=== PATIENT | male | born 1985 | race African-American/Black ===

== ENCOUNTER 2017-10-11 22:45 | Emergency (ER) | payer MEDICARE ==
[~2017-10-11] VITALS: Ht 188 cm; Wt 100.0 kg
[2017-10-11 22:50] VITALS: BP 166/108; PULSE 75; RESP 16; O2SAT 98
[2017-10-11] MEDS ORDERED: AMLO10TA2 PO (22:50)
[2017-10-11 22:57] VITALS: BP_SYST 158; BP_SYST 166; BP_DIAS 101; BP_DIAS 108
[2017-10-11] MEDS ORDERED: SODIUM CHLORIDE 0.9% FLUSH 10 ML FLUSH IVF PRN (23:00)
--- NOTE | 2017-10-11 23:00 | PD ---
HPI Chief Complaint: Hypertension Time Seen by Provider: 22:53 Travel History International Travel<30 days: No Contact w/Intl Traveler<30days: No Traveled to known affect area: No History of Present Illness HPI 32-year-old male patient with history of hypertension, presents to the ER today brought in by his mom because he apparently has been having several days of feeling hot and cold, and today's looking more lethargic, complains of feeling weak, complains to me that he is having some chest discomfort although he states is not actual chest pains. He also complains of a headache. He apparently has similar symptoms before and had been told that his blood pressure was too high. He has been on Norvasc and did take his Norvasc today. His mom states his blood pressures were elevated. She had taken a temperature and he did not have a temperature at home. Modifying Factors: None Associated Signs & Symptoms: Headache, chest discomfort, elevated blood pressures Risk Factors: History of hypertension PFSH Past Medical History Diminished Hearing: No Hypertension: Yes Tetanus Vaccination: Unknown Past Surgical History Surgical History: No Previous Surgery Social History Alcohol Use: No Tobacco Use: No Substance Use: No Allergies-Medications (Allergen,Severity, Reaction): Coded Allergies: No Known Allergies (Unverified , 10/11/17) Reported Meds & Prescriptions Reported Meds & Active Scripts Active Reported Amlodipine (Amlodipine Besylate) 10 Mg Tab 10 Mg PO DAILY Review of Systems Except as stated in HPI: all other systems reviewed are Neg Physical Exam Narrative GENERAL: Well-developed young -British male patient currently in moderate distress. Awake, lethargic, but answering questions appropriately. SKIN: Focused skin assessment warm/dry. HEAD: Atraumatic. Normocephalic. EYES: Pupils equal and round. No scleral icterus. No injection or drainage. ENT: No nasal bleeding or discharge. Mucous membranes pink and moist. NECK: Trachea midline. No JVD. CARDIOVASCULAR: Regular rate and rhythm. No murmur appreciated. Pulses are present and equal bilaterally. RESPIRATORY: No accessory muscle use. Clear to auscultation. Breath sounds equal bilaterally. GASTROINTESTINAL: Abdomen soft, non-tender, nondistended. Hepatic and splenic margins not palpable. MUSCULOSKELETAL: No obvious deformities. No clubbing. No cyanosis. No edema. NEUROLOGICAL: Awake and lethargic. No obvious cranial nerve deficits. Motor grossly within normal limits. Normal speech. PSYCHIATRIC: Appropriate mood and affect; insight and judgment normal. Data Data Last Documented VS Vital Signs Date Time Temp Pulse Resp B/P (MAP) Pulse Ox O2 Delivery O2 Flow Rate FiO2 10/12/17 01:22 83 17 148/97 (114) 10/11/17 22:53 99 Room Air Orders Orders Electrocardiogram (10/11/17 22:54) B-Type Natriuretic Peptide (10/11/17 22:54) Ckmb (Isoenzyme) Profile (10/11/17 22:54) Complete Blood Count With Diff (10/11/17 22:54) Comprehensive Metabolic Panel (10/11/17 22:54) Magnesium (Mg) (10/11/17 22:54) Prothrombin Time / Inr (Pt) (10/11/17 22:54) Act Partial Throm Time (Ptt) (10/11/17 22:54) Troponin I (10/11/17 22:54) Chest, Single Ap (10/11/17 22:54) Ecg Monitoring (10/11/17 22:54) Bilateral Bp Monitoring (10/11/17 22:54) Iv Access Insert/Monitor (10/11/17 22:54) Oximetry (10/11/17 22:54) Oxygen Administration (10/11/17 22:54) Sodium Chloride 0.9% Flush (Ns Flush) (10/11/17 23:00) Blood Culture (10/11/17 22:54) Ct Brain W/O Iv Contrast(Rout) (10/11/17 22:54) Drug Screen, Random Urine (10/11/17 22:54) Ondansetron Inj (Zofran Inj) (10/11/17 23:30) Alcohol (Ethanol) (10/11/17 23:00) CKMB (10/11/17 ) CKMB% (10/11/17 ) Ed Discharge Order (10/12/17 02:09) Labs Laboratory Tests Test 10/11/17 00:00 10/11/17 23:00 10/12/17 01:00 Blood Urea Nitrogen 10 MG/DL Creatinine 1.02 MG/DL Random Glucose 114 MG/DL Total Protein 7.6 GM/DL Albumin 3.7 GM/DL Calcium Level 8.6 MG/DL Magnesium Level 1.9 MG/DL Alkaline Phosphatase 52 U/L Aspartate Amino Transf (AST/SGOT) 16 U/L Alanine Aminotransferase (ALT/SGPT) 14 U/L Total Bilirubin 0.7 MG/DL Sodium Level 140 MEQ/L Potassium Level 4.0 MEQ/L Chloride Level 105 MEQ/L Carbon Dioxide Level 28.5 MEQ/L Anion Gap 7 MEQ/L Estimat Glomerular Filtration Rate 104 ML/MIN Total Creatine Kinase 104 U/L Creatine Kinase MB LESS THAN 0.5 NG/ML Troponin I LESS THAN 0.02 NG/ML B-Type Natriuretic Peptide LESS THAN 2 PG/ML Ethyl Alcohol Level LESS THAN 3 MG/DL White Blood Count 10.7 TH/MM3 Red Blood Count 5.43 MIL/MM3 Hemoglobin 14.5 GM/DL Hematocrit 44.1 % Mean Corpuscular Volume 81.3 FL Mean Corpuscular Hemoglobin 26.8 PG Mean Corpuscular Hemoglobin Concent 32.9 % Red Cell Distribution Width 12.7 % Platelet Count 258 TH/MM3 Mean Platelet Volume 8.9 FL Neutrophils (%) (Auto) 83.6 % Lymphocytes (%) (Auto) 8.8 % Monocytes (%) (Auto) 5.7 % Eosinophils (%) (Auto) 1.5 % Basophils (%) (Auto) 0.4 % Neutrophils # (Auto) 9.0 TH/MM3 Lymphocytes # (Auto) 0.9 TH/MM3 Monocytes # (Auto) 0.6 TH/MM3 Eosinophils # (Auto) 0.2 TH/MM3 Basophils # (Auto) 0.0 TH/MM3 CBC Comment DIFF FINAL Differential Comment Prothrombin Time 10.6 SEC Prothromb Time International Ratio 1.0 RATIO Activated Partial Thromboplast Time 27.3 SEC Urine Opiates Screen NEG Urine Barbiturates Screen NEG Urine Amphetamines Screen NEG Urine Benzodiazepines Screen NEG Urine Cocaine Screen NEG Urine Cannabinoids Screen NEG MDM Medical Decision Making Medical Screen Exam Complete: Yes Emergency Medical Condition: Yes Medical Record Reviewed: Yes Interpretation(s) EKG shows NSR, no ST elevation or depression, and no arrhythmias. No significant T-wave inversions. Laboratory Tests Test 10/11/17 00:00 10/11/17 23:00 10/12/17 01:00 Random Glucose 114 MG/DL (74-106) Creatine Kinase MB LESS THAN 0.5 NG/ML Troponin I LESS THAN 0.02 NG/ML Mean Corpuscular Hemoglobin 26.8 PG (27.0-34.0) Neutrophils (%) (Auto) 83.6 % (16.0-70.0) Lymphocytes (%) (Auto) 8.8 % (9.0-44.0) Neutrophils # (Auto) 9.0 TH/MM3 (1.8-7.7) Lymphocytes # (Auto) 0.9 TH/MM3 (1.0-4.8) Last [address] 10/11/172253 Signed Impressions: Service Date/Time: Wednesday, October 11, 2017 23:14 - CONCLUSION: Negative noncontrast CT brain. Trey Alcaraz MD Chest X-Ray 10/11/172253 Signed Impressions: Service Date/Time: Wednesday, October 11, 2017 23:01 - CONCLUSION: The lungs are clear. Trey Alcaraz MD Differential Diagnosis Headaches, chest discomfort, elevated blood pressures: Hypertensive urgency versus metabolic issues versus dehydration versus renal failure versus sepsis versus viral syndrome Narrative Course CT the brain is negative for any signs of acute intracranial processes. Patient has no focal neurological findings. EKG was unremarkable. Lab work was unremarkable. His blood pressure was mildly elevated. On further questioning, both patient and mother state that he had ran out of his Norvasc, just took his last pill today. Patient obviously needs better blood pressure control. At this point, I have talked to the patient regarding further workup including lumbar puncture, further evaluation, but he is declining, states that he would rather go home. He does not want me to do a lumbar puncture or further workup at this time. He states that he feels worse he should come back. At this point, I have talked him about the fact that we cannot rule out all acute issues and that further testing would be necessary, patient states understanding. He should return for any worsening in symptoms and follow-up with primary care physician regarding elevated blood pressures. Diagnosis Primary Impression: Hypertensive urgency Med/Other Pt SpecificInfo: Prescription(s) given Scripts Amlodipine (Amlodipine) 10 Mg Tab 10 MG PO DAILY for Blood Pressure Management, #30 TAB 0 Refills Prov: Pan Diaz MD 10/12/17 Disposition: 01 DISCHARGE HOME Condition: Stable Pan Diaz MD Oct 11, 2017 23:00
[2017-10-11] MEDS ORDERED: ONDANSETRON HCL 4 MG/2 ML VIAL IV PUSH ONE (23:30)
[2017-10-11 23:37] LABS: BASOPHIL % 0.4 % (0.0-2.0); EOSINOPHIL # 0.2 TH/MM3 (0-0.4); EOSINOPHIL % 1.5 % (0.0-4.0); HEMATOCRIT 44.1 % (39.0-51.0); HEMO FLAGS DIFF FINAL; LYMPH % 8.8 % (9.0-44.0); LYMPHOCYTE # 0.9 TH/MM3 (1.0-4.8); MEAN CELL VOLUME 81.3 FL (80.0-100.0); MEAN CORPUSCULAR HEMOGLOBIN 26.8 PG (27.0-34.0); MEAN CORPUSCULAR HGB CONC 32.9 % (32.0-36.0); MONO % 5.7 % (0.0-8.0); NEUT % 83.6 % (16.0-70.0); PLATELET COUNT 258 TH/MM3 (150-450); RED BLOOD COUNT 5.43 MIL/MM3 (4.50-5.90); RED CELL DISTRIBUTION WIDTH 12.7 % (11.6-17.2); WHITE BLOOD COUNT 10.7 TH/MM3 (4.0-11.0)
--- NOTE | 2017-10-11 23:39 | RADRPT ---
EXAM DATE/TIME: 10/11/2017 23:14 [facility] COMPARISON: No previous studies available for comparison. INDICATIONS : Altered mental status. RADIATION DOSE: 43.43 CTDIvol (mGy) MEDICAL HISTORY : Hypertension. SURGICAL HISTORY : None. ENCOUNTER: Initial ACUITY: 1 day PAIN SCALE: Non-responsive LOCATION: cranial TECHNIQUE: Multiple contiguous axial images were obtained of the head. Using automated exposure control and adj ustment of the mA and/or kV according to patient size, radiation dose was kept as low as reasonably a chievable to obtain optimal diagnostic quality images. DICOM format image data is available electro nically for review and comparison. FINDINGS: CEREBRUM: The ventricles are normal for age. No evidence of midline shift, mass lesion, hemorrhage or acute in farction. No extra-axial fluid collections are seen. POSTERIOR FOSSA: The cerebellum and brainstem are intact. The 4th ventricle is midline. The cerebellopontine angle i s unremarkable. EXTRACRANIAL: The visualized portion of the orbits is intact. SKULL: The calvaria is intact. No evidence of skull fracture. CONCLUSION: Negative noncontrast CT brain. Trey Alcaraz MD on October 11, 2017 at 23:36 Board Certified Radiologist. This report was verified electronically.
--- NOTE | 2017-10-11 23:42 | RADRPT ---
EXAM DATE/TIME: 10/11/2017 23:01 [facility] COMPARISON: No previous studies available for comparison. INDICATIONS : Chest pain. MEDICAL HISTORY : Hypertension. SURGICAL HISTORY : None. ENCOUNTER: Initial ACUITY: 1 day PAIN SCORE: 12/04 LOCATION: Bilateral chest FINDINGS: A single view of the chest demonstrates the lungs to be symmetrically aerated without evidence of mas s, infiltrate or effusion. The cardiomediastinal contours are unremarkable. Osseous structures are intact. CONCLUSION: The lungs are clear. Trey Alcaraz MD on October 11, 2017 at 23:41 Board Certified Radiologist. This report was verified electronically.
[2017-10-11 23:46] LABS: APTT (PATIENT) 27.3 SEC (24.3-30.1); PROTHROMBIN TIME - PATIENT 10.6 SEC (9.8-11.6)
[2017-10-12 00:30] LABS: ALT (GPT) 14 U/L (12-78); ANION GAP 7 MEQ/L (5-15); AST (GOT) 16 U/L (15-37); BICARBONATE 28.5 MEQ/L (21.0-32.0); BLOOD UREA NITROGEN 10 MG/DL (7-18); CHLORIDE 105 MEQ/L (98-107); GLOMERULAR FILTRATION RATE 104 ML/MIN (>89); MAGNESIUM 1.9 MG/DL (1.5-2.5); SODIUM (NA) 140 MEQ/L (136-145)
[2017-10-12 00:34] LABS: ALKALINE PHOSPHATASE 52 U/L (45-117); CREATINE KINASE 104 U/L (39-308); TOTAL BILIRUBIN ADULT 0.7 MG/DL (0.2-1.0)
[2017-10-12 00:47] LABS: ALCOHOL LESS THAN 3 MG/DL (0-5)
[2017-10-12 01:00] LABS: CKMB LESS THAN 0.5 NG/ML (0.5-3.6)
[2017-10-12 01:22] VITALS: BP 148/97; PULSE 83; RESP 17
[2017-10-12] MEDS ORDERED: AMLO10TA2 PO (02:14)
--- NOTE | 2017-10-12 15:47 | EKG ---
Date Performed: 10/11/2017 Time Performed: 22:46:30 PTAGE: 32 years EKG: Sinus rhythm NONSPECIFIC T-WAVE ABNORMALITY BORDERLINE ECG INTERPRETATION BASED ON A DEFAULT AGE OF 42 YEARS NO PREVIOUS TRACING DOCTOR: Getachew Miles Interpretating Date/Time 10/12/2017 15:45:51
[2017-10-13] MEDS ORDERED: CLIN150 PO (05:36)
[2017-10-13] MEDS ORDERED: BACT800T5 PO (05:36)
== END 2017-10-12 02:29 | disposition home or self-care (01) ==
LOC: NEPE 22:45
DX: I16.0 Hypertensive urgency (principal); R07.89 Other chest pain; Z79.899 Other long term (current) drug therapy
CPT/HCPCS: 70450; 71010; 80053; 80307; 82550; 82552; 83735; 83880; 84484; 85025; 85610; 85730; 87040; 93005; 96374; 99285; J2405

== ENCOUNTER 2017-10-13 05:08 | Emergency (ER) | payer MEDICARE ==
[~2017-10-13] VITALS: Ht 190.5 cm; Wt 100.0 kg
[2017-10-13 05:08] VITALS: BP 127/86; PULSE 106; RESP 18; TEMP 99.3; O2SAT 98
[~2017-10-13 05:08] MED LIST: AMLO10TA2 PO
[2017-10-13] MEDS ORDERED: CLIN150 PO (05:36)
[2017-10-13] MEDS ORDERED: BACT800T5 PO (05:36)
[2017-10-13] MEDS ORDERED: CLINDAMYCIN 900 MG PREMIX 50 ML IV ONE (05:45)
[2017-10-13] MEDS ORDERED: SULFAMETHOXAZOLE-TRIMETHOPRIM DS 800-160 MG TAB PO ONE (05:45)
--- NOTE | 2017-10-13 05:51 | PD ---
HPI Chief Complaint: Skin Problem Time Seen by Provider: 05:34 Travel History International Travel<30 days: No Contact w/Intl Traveler<30days: No Traveled to known affect area: No History of Present Illness HPI 32-year-old black male presents emergency Department with complains of a painful rash in his right groin over the past 1-2 days. He states that he was just seen in the ER 2 nights ago for hypertensive urgency. At that time the rash did not bother him. Since then it has become increasingly painful, red and swollen. He is been squeezing the area and only getting a small amount of pus. States the pain is moderate. Positive subjective fever. He denies any nausea, vomiting, abdominal pain. No urinary symptoms. PFSH Past Medical History Narrative Medical Hypertension Diminished Hearing: No Hypertension: Yes Tetanus Vaccination: < 5 Years Social History Alcohol Use: No Tobacco Use: No Substance Use: No Allergies-Medications (Allergen,Severity, Reaction): Coded Allergies: No Known Allergies (Unverified , 10/13/17) Reported Meds & Prescriptions Reported Meds & Active Scripts Active Bactrim DS (Sulfamethoxazole-Trimethoprim) 800-160 Mg Tab 1 Tab PO BID Cleocin (Clindamycin HCl) 150 Mg Cap 300 Mg PO Q6H 10 Days Amlodipine (Amlodipine Besylate) 10 Mg Tab 10 Mg PO DAILY Review of Systems Except as stated in HPI: all other systems reviewed are Neg General / Constitutional: Positive: Fever, Chills Eyes: No: Visual changes HENT: No: Headaches Cardiovascular: No: Chest Pain or Discomfort Respiratory: No: Shortness of Breath Gastrointestinal: No: Nausea, Vomiting, Abdominal Pain Genitourinary: No: Urgency, Frequency, Dysuria Musculoskeletal: No: Pain Skin: No Rash Neurologic: No: Weakness Psychiatric: No: Depression Endocrine: No: Polydipsia Hematologic/Lymphatic: No: Easy Bruising Physical Exam Narrative GENERAL: This is a well-nourished, well-developed patient, in no apparent distress. SKIN: No rashes, ecchymoses or lesions. Warm and dry. HEAD: Atraumatic. Normocephalic. EYES: PERRL, EOMI, no discharge or injection. No scleral icterus. EARS: Clear NOSE: Nasal turbinates appear normal. THROAT: Mucosa pink and moist. Airway patent. NECK: Trachea midline. supple, moves head freely. LUNGS: Clear to auscultation. CV: Regular in rhythm. ABDOMEN: Soft nontender. EXT: No clubbing cyanosis or edema. GENITOURINARY: Circumcised. Testes descended bilaterally without evidence of rotation. No lesions or erythema. No urethral discharge. No involvement of the scrotum. There is a large area of erythema, induration and thickening to the right inguinal area. The area measures approximately 3 x 6 cm. There is a small open area of purulent. It is indurated but not fluctuant. Data Data Last Documented VS Vital Signs Date Time Temp Pulse Resp B/P (MAP) Pulse Ox O2 Delivery O2 Flow Rate FiO2 10/13/17 05:08 99.3 106 18 127/86 (100) 98 Room Air Orders Orders Clindamycin 900 Mg Premix (Cleocin 900 M (10/13/17 05:45) Sulfamet-Trimeth Ds 800-160 Mg (Bactrim (10/13/17 05:45) MDM Medical Decision Making Medical Screen Exam Complete: Yes Emergency Medical Condition: Yes Medical Record Reviewed: Yes Differential Diagnosis MDM: High Differential diagnoses: Abscess, folliculitis, cellulitis, lymphangitis, abrasion, contact dermatitis Narrative Course IV access is obtained. Patient's given clindamycin 900 mg IV and Bactrim DS by mouth. This is right inguinal cellulitis, abscess Diagnosis Primary Impression: Cellulitis of right groin Additional Impression: Abscess of right groin Patient Instructions: General Instructions Additional Instructions: Rest. Warm compresses. Do not pick or squeeze. Clindamycin and Bactrim DS. Recheck in 48 hours in the ER or with a primary care doctor. Return to the ER sooner if any problems. Med/Other Pt SpecificInfo: Prescription(s) given Scripts Sulfamethoxazole-Trimethoprim (Bactrim DS) 800-160 Mg Tab 1 TAB PO BID for Infection, #20 TAB 0 Refills Prov: Delmar Garg MD 10/13/17 Clindamycin (Cleocin) 150 Mg Cap 300 MG PO Q6H for Infection for 10 Days, #80 CAP 0 Refills Prov: Delmar Garg MD 10/13/17 Disposition: 01 DISCHARGE HOME Condition: Stable Case Clement Oct 13, 2017 05:51
== END 2017-10-13 06:37 | disposition home or self-care (01) ==
LOC: NEPD 05:08
DX: L03.314 Cellulitis of groin (principal); L02.214 Cutaneous abscess of groin; I10 Essential (primary) hypertension; Z79.899 Other long term (current) drug therapy
CPT/HCPCS: 96365

== ENCOUNTER 2017-12-28 19:54 | Emergency (ER) | payer MEDICARE ==
[~2017-12-28] VITALS: Ht 182.9 cm; Wt 75.0 kg
[~2017-12-28 19:54] MED LIST changes: +BACT800T5 PO; +CLIN150 PO
[2017-12-28 19:57] VITALS: BP 152/102; PULSE 93; RESP 20; TEMP 98.4; O2SAT 96
[2017-12-28] MEDS ORDERED: AZITHROMYCIN 250 MG TAB PO ONE (20:15)
[2017-12-28] MEDS ORDERED: LIDOCAINE HCL 1% 30 ML VIAL INFIL ONE (20:15)
[2017-12-28] MEDS ORDERED: cefTRIAXone 250 MG VIAL IM ONE (20:15)
[2017-12-28] MEDS ORDERED: LIDOCAINE HCL 1% 50 ML VIAL XX ONE (20:15)
[2017-12-28] MEDS ORDERED: LIDOCAINE HCL 1% PF 30 ML VIAL ONE (20:20)
--- NOTE | 2017-12-28 20:30 | PD ---
HPI Chief Complaint: Complaint Time Seen by Provider: 20:01 Travel History International Travel<30 days: No Contact w/Intl Traveler<30days: No Traveled to known affect area: No History of Present Illness HPI 32-year-old male presents for evaluation of area of painful skin soft tissue swelling in the left groin/lateral scrotal region. Symptoms started 3 days ago. Throbbing pain which is constant, worse with palpation. He has noted some purulent drainage from the skin as well. Denies any pain in the testicles themselves. Denies any dysuria, fevers, chills, nausea, vomiting, abdominal pain. He has no other complaints at this time. [facility] Past Medical History Diminished Hearing: No Hypertension: Yes Immunizations Current: Yes Tetanus Vaccination: Unknown Influenza Vaccination: No Social History Alcohol Use: No Tobacco Use: No Substance Use: No Allergies-Medications (Allergen,Severity, Reaction): Coded Allergies: No Known Allergies (Unverified , 12/28/17) Reported Meds & Prescriptions Reported Meds & Active Scripts Active Clindamycin (Clindamycin HCl) 300 Mg Cap 300 Mg PO TID 10 Days Amlodipine (Amlodipine Besylate) 10 Mg Tab 10 Mg PO DAILY Review of Systems Except as stated in HPI: all other systems reviewed are Neg Physical Exam Narrative GENERAL: [Well-developed well-nourished male in no acute distress SKIN: Warm and dry. There is an area of induration/fluctuance on the lateral proximal scrotal wall. There is some purulent white drainage. There is no tenderness to palpation of the intrascrotal contents. : Skin as noted above. There is white urethral discharge. HEAD: Atraumatic. Normocephalic. EYES: Pupils equal and round. No scleral icterus. No injection or drainage. ENT: No nasal bleeding or discharge. Mucous membranes pink and moist. NECK: Trachea midline. No JVD. CARDIOVASCULAR: Regular rate and rhythm. No murmur appreciated. RESPIRATORY: No accessory muscle use. Clear to auscultation. Breath sounds equal bilaterally. GASTROINTESTINAL: Abdomen soft, non-tender, nondistended. Hepatic and splenic margins not palpable. Data Data Last Documented VS Vital Signs Date Time Temp Pulse Resp B/P (MAP) Pulse Ox O2 Delivery O2 Flow Rate FiO2 12/28/17 19:57 98.4 93 20 152/102 (119) 96 Room Air Orders Orders Lidocaine 1% Inj (Xylocaine 1% Inj) (12/28/17 20:15) Gc And Chlamydia Pcr (12/28/17 20:06) Azithromycin (Zithromax) (12/28/17 20:15) Ceftriaxone Inj (Rocephin Inj) (12/28/17 20:15) Lidocaine 1% Inj (50 Ml) (Xylocaine 1% I (12/28/17 20:15) Wound Culture And Gram Stain (12/28/17 20:06) Lidocaine Pf 1% Inj (Xylocaine-Mpf 1% In (12/28/17 20:20) Clindamycin Inj (Cleocin Inj) (12/28/17 20:45) Ed Discharge Order (12/28/17 20:43) Labs Laboratory Tests Test 12/28/17 20:15 [facility] Medical Decision Making Medical Screen Exam Complete: Yes Emergency Medical Condition: Yes Medical Record Reviewed: Yes Differential Diagnosis Abscess, cellulitis, Osmani's gangrene, erysipelas, urethritis Narrative Course Examination is consistent with abscess and cellulitis of the left scrotal wall which appears superficial. Wound culture was obtained from the purulent drainage. Plan is for incision and drainage of the area. The patient also has evidence of urethritis with white discharge from the urethral meatus. GC probe has been ordered and he is being treated with Rocephin and azithromycin. The abscess was incised and drained. Intramuscular clindamycin ordered. Recommended wound recheck in 2-3 days. He is agreeable. Procedures Procedure Narrative INCISION AND DRAINAGE OF ABSCESS: The area was prepped and was sterilely draped. A subcutaneous wheal of 1% lidocaine with a total number 6 mL was used to anesthetize the area. The area was properly anesthetized. A number 11 scalpel was used to make a 1-cm incision across the area of the abscess. Cultures were obtained. The abscess was drained an irrigated with normal saline. Diagnosis Primary Impression: Urethritis Additional Impression: Abscess of left groin Additional Instructions: Warm soaks 20 minutes at a time 3-4 times a day. Take the antibiotics as prescribed. Return in 2-3 days for recheck. Med/Other Pt SpecificInfo: Prescription(s) given, Wound Care Scripts Clindamycin (Clindamycin) 300 Mg Cap 300 MG PO TID for Infection for 10 Days, CAP 0 Refills Prov: Patria Owen MD 12/28/17 Disposition: 01 DISCHARGE HOME Condition: Stable Deondre Barnes Dec 28, 2017 20:30
[2017-12-28] MEDS ORDERED: CLIN300C5 PO (20:44)
[2017-12-28] MEDS ORDERED: CLINDAMYCIN PHOS 600 MG/4 ML VIAL IM ONE (20:45)
== END 2017-12-28 21:20 | disposition home or self-care (01) ==
LOC: NEPC 19:54
DX: N34.2 Other urethritis (principal); L02.214 Cutaneous abscess of groin; B95.62 Methicillin resistant Staphylococcus aureus infection as the cause of diseases classified elsewhere; B95.4 Other streptococcus as the cause of diseases classified elsewhere; I10 Essential (primary) hypertension
CPT/HCPCS: 10060; 86403; 87070; 87186; 87491; 87591; 96372; 99283; J0696; 87205

== ENCOUNTER 2018-03-04 18:55 | Emergency (ER) | payer SELFPAY ==
[~2018-03-04 18:55] MED LIST changes: -BACT800T5 PO; -CLIN150 PO; +CLIN300C5 PO
[2018-03-04 19:26] VITALS: BP 155/98; PULSE 96; RESP 18; TEMP 98.6; O2SAT 96
--- NOTE | 2018-03-04 19:57 | PD ---
HPI Chief Complaint: Skin Problem Time Seen by Provider: 19:40 Travel History International Travel<30 days: No Contact w/Intl Traveler<30days: No History of Present Illness HPI 32-year-old male presents to the emergency department with a questionable spider bite to his left facial cheek 3 days. Denies fever, nausea, vomiting. Denies history of MRSA. Denies dental pain. Denies drainage from the site. Has not taken any medications or try any treatments to alleviate his symptoms. Rates pain 7/10. Worse with palpation. No known relieving factors. No primary care provider. History of hypertension. No known allergies. Has no other medical complaints. No other modifying factors or associated signs and symptoms. PFSH Past Medical History Diminished Hearing: No Hypertension: Yes Immunizations Current: Yes Social History Alcohol Use: No Tobacco Use: No Substance Use: No Allergies-Medications (Allergen,Severity, Reaction): Coded Allergies: No Known Allergies (Unverified , 12/28/17) Reported Meds & Prescriptions Reported Meds & Active Scripts Active Ibuprofen 800 Mg Tab 800 Mg PO Q6HR PRN Deltasone (Prednisone) 20 Mg Tab 40 Mg PO DAILY 4 Days start 03/05/2018 Doxycycline Hyclate 100 Mg Cap 100 Mg PO BID 10 Days Review of Systems Except as stated in HPI: all other systems reviewed are Neg Physical Exam Narrative GENERAL: Well-nourished, well-developed black male patient, in no acute distress ; afebrile, nontoxic-appearing SKIN: There is an indurated area to the left facial cheek which measures about 1 cm X 2cm in diameter. It is nonfluctuant and there is no pointing or drainage ; the area is firm and with mild erythema and warmth to touch. There is a pinpoint scabbed area to the center of the area without any drainage. HEAD: Atraumatic. Normocephalic. EYES: Pupils equal and round. No scleral icterus. No injection or drainage. ENT: Mucosa pink and moist. Airway patent. NECK: Trachea midline. CARDIOVASCULAR: Regular rate. RESPIRATORY: No accessory muscle use. GASTROINTESTINAL: Flat. MUSCULOSKELETAL: No obvious deformities. No clubbing. No cyanosis. No edema. NEUROLOGICAL: Awake and alert. Oriented 3. No obvious cranial nerve deficits. Motor grossly within normal limits. Normal speech. PSYCHIATRIC: Appropriate mood and affect; insight and judgment normal. Data Data Last Documented VS Vital Signs Date Time Temp Pulse Resp B/P (MAP) Pulse Ox O2 Delivery O2 Flow Rate FiO2 03/04/18 19:26 98.6 96 18 155/98 (117) 96 Orders Orders Sulfamet-Trimeth Ds 800-160 Mg (Bactrim (03/04/18 20:00) Ibuprofen (Motrin) (03/04/18 20:00) Prednisone (Deltasone) (03/04/18 20:00) Doxycycline (Vibramycin) (03/04/18 20:00) MDM Medical Decision Making Medical Screen Exam Complete: Yes Emergency Medical Condition: Yes Medical Record Reviewed: Yes Differential Diagnosis Cellulitis, abscess, infected insect bite, MRSA Narrative Course 32-year-old male with left facial cellulitis. The area is a palpable area of induration but there is no fluctuance and it is firm. There is a small pinpoint scabbed spot in the middle of the indurated area, without drainage. Patient is afebrile and nontoxic-appearing. Denies fever, vomiting. I reviewed the patient's medical record and on December 28, 2017 he was seen here for an abscess in his groin area and it was incised and drained and wound culture showed as source MRSA which was susceptible to tetracycline. The wound culture on December 28 resistant to Bactrim and clindamycin. I will prescribe doxycycline secondary to microbiology findings of December 28. Doxycycline, Deltasone, ibuprofen administered in the ER. Doxycycline, Deltasone, ibuprofen prescribed for home. Instructed the patient the possibility to need to return for incision and drainage of the area. Instructed patient to do warm compresses to the area. Instructed patient to return to emergency department if symptoms worsen despite antibiotic and steroid therapy. Patient verbalized understanding and agreement with plan of care. Instructed patient to follow up with primary care provider. Patient verbalizes understanding and agreement with treatment plan. Patient is medically cleared and stable for discharge. Discussed reasons to return to the emergency department. Patient agrees with treatment plan. The patients vital signs are stable and the patient is stable for outpatient follow-up and treatment. Patient discharged home, stable and in no acute distress. Diagnosis Primary Impression: Cellulitis of external cheek, left Referrals: [facility] Primary Care Physician Patient Instructions: Abscess (ED), Abscess Follow-up (ED), Cellulitis (ED), General Instructions Additional Instructions: Complete full course of antibiotics Warm compresses to the affected area Keep area clean and dry Ibuprofen or Tylenol as directed and as needed for pain and inflammation Return to the emergency department if worsening of left facial cheek, despite antibiotic and steroid therapy You may need to return to the emergency department for incision and drainage of the left cheek Follow-up with primary care provider Return to emergency department immediately with worsening of symptoms, particularly with symptoms as discussed Med/Other Pt SpecificInfo: Prescription(s) given Scripts Ibuprofen (Ibuprofen) 800 Mg Tab 800 MG PO Q6HR Y for PAIN, #30 TAB 0 Refills Prov: Natalia Rothman 03/04/18 Prednisone (Deltasone) 20 Mg Tab 40 MG PO DAILY for 4 Days, #8 TAB 0 Refills start 03/05/2018 Prov: Natalia Rothman 03/04/18 Doxycycline Hyclate (Doxycycline Hyclate) 100 Mg Cap 100 MG PO BID for Infection for 10 Days, #20 CAP 0 Refills Prov: Natalia Rothman 03/04/18 Disposition: 01 DISCHARGE HOME Condition: Stable Natalia Rothman Mar 04, 2018 19:57
[2018-03-04] MEDS ORDERED: SULFAMETHOXAZOLE-TRIMETHOPRIM DS 800-160 MG TAB PO ONE (20:00)
[2018-03-04] MEDS ORDERED: DOXYCYCLINE HYCLATE 100 MG CAP PO ONE (20:00)
[2018-03-04] MEDS ORDERED: IBUPROFEN 800 MG TAB PO ONE (20:00)
[2018-03-04] MEDS ORDERED: predniSONE 20 MG TAB PO ONE (20:00)
[2018-03-04] MEDS ORDERED: DOXY100C PO (20:09)
[2018-03-04] MEDS ORDERED: IBUP1TAB7 PO (20:09)
[2018-03-04] MEDS ORDERED: PRED-503 PO (20:09)
== END 2018-03-04 20:55 | disposition home or self-care (01) ==
LOC: NEPK 18:55
DX: L03.211 Cellulitis of face (principal); I10 Essential (primary) hypertension
CPT/HCPCS: 99283; J7512